=== PATIENT | male | born 1990 | race Two or more races ===

== ENCOUNTER 2025-01-01 00:30 | Emergency (ER) | payer MEDICAID, SELFPAY ==
--- NOTE | 2025-01-01 00:33 | EKG_ITS ---
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
[2025-01-01 00:47] VITALS: BP 141/98; PULSE 100; RESP 18; TEMP 37.2; O2SAT 95; BMI 34.5
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
--- NOTE | 2025-01-01 01:09 | PD.EDDIZZY ---
ED Dizzyness RME/HPI General Chief Complaint: Dizziness Stated Complaint: Dizzy Time Seen by Provider: 01/01/25 01:03 Arrival date/time: 01/01/25 00:30 34M with history of DM presents to ED with 2 days of dizziness and heart palps. Patient denies URI symptoms, CP, and SOB. Patient has been sober from alcohol for 5 months. Limitations: no limitations Related Data Previous Rx's ?Medication ?Instructions ?Recorded cyclobenzaprine 10 mg tablet 10 mg PO TID PRN muscle spasm #30 10/05/20 tabs ibuprofen 800 mg tablet 800 mg PO TID PRN pain #30 tabs 10/05/20 meclizine 25 mg tablet 25 mg PO BID PRN dizziness #30 tabs 01/01/25 Allergies Allergy/AdvReac Type Severity Reaction Status Date / Time No Known Allergies Allergy Verified 10/05/20 19:49 Review of Systems Review of Systems Systems Reviewed: All systems reviewed, normal except as documented Constitutional Constitutional: Reports system reviewed and no additional complaints, except as documented, Denies fever(s) and Denies headache(s) ENT Ears, Nose, Mouth, and Throat: Reports as per HPI, Denies disequilibrium, Denies headache(s) and Reports vertigo Cardiovascular Cardiovascular: Reports system reviewed and no additional complaints, except as documented, Reports as per HPI, Denies chest pain, Denies dyspnea and Reports palpitations Respiratory Respiratory: Reports system reviewed and no additional complaints, except as documented, Denies cough and Denies dyspnea Gastrointestinal Gastrointestinal: Reports system reviewed and no additional complaints, except as documented, Denies abdominal pain, Denies nausea and Denies vomiting Neurologic Neurologic: Reports system reviewed and no additional complaints, except as documented, Denies confusion, Denies disequilibrium, Denies headache(s) and Reports vertigo Psychiatric Psychiatric: Denies confusion Endocrine Endocrine: Reports palpitations Past Medical History Past Medical History NEUROLOGIC: Negative Neurological Disorders, Cerebrovascular Accident or Alzheimer's Disease CARDIAC: Negative Cardiac Disorders, Myocardial Infarction or Congestive Heart Failure RESPIRATORY: Negative Chronic Obstructive Pulmonary Disease (COPD) GASTROINTESTINAL: Negative Gastrointestinal Disorders, Liver Cancer or Hepatitis GENITOURINARY: Negative Genitourinary Disorders or Renal Disease MUSCULOSKELETAL: Negative Musculoskeletal Disorders or Muscular Dystrophy ENT: Negative Blind or Deafness ENDOCRINE: Negative Endocrine Disorders, Diabetes Mellitus Type 1 or Diabetes Mellitus Type 2 OTHER HISTORY: Negative Down Syndrome or Developmental Delay Surgical History SURGICAL: Positive Abdominal Surgery (Appy ) Social History SMOKING STATUS: Never smoker ED Exam General Limitations: Present no limitations General appearance: Present alert and in no apparent distress Head Head exam: Present atraumatic Eye Eye exam: Present normal appearance, PERRL and EOMI ENT ENT exam: Present normal exam, normal oropharynx and mucous membranes moist Neck Neck exam: Present normal inspection, full ROM and trachea midline Chest Chest inspection: Present normal inspection and symmetric chest wall rise Respiratory Respiratory exam: Present normal lung sounds bilaterally Cardiovascular Cardiovascular exam: Present regular rate, normal rhythm and normal heart sounds Abdominal Exam Abdominal exam: Present soft and normal bowel sounds Extremities Exam Extremities exam: Present normal inspection and full ROM Back Exam Back exam: Present normal inspection and full ROM Neurological Exam Neurological exam: Present alert, oriented X3 and CN II-XII intact Psychiatric Psychiatric exam: Present normal affect and normal mood Skin Skin exam: Present warm, dry, intact and normal color Course Quality Measures none Orders Category Date Time Status Blood glucose [Bedside Blood Glucose] NOW Care 01/01/25 01:01 Active EKG (ED ONLY) *Do not use* NOW Care 01/01/25 00:[address] head/brain wo con Stat Exams 01/01/25 01:03 Taken EKG (ED Only) Stat Exams 01/01/25 00:33 Draft Alcohol, Blood Medical Stat Lab 01/01/25 01:38 Completed CBC Stat Lab 01/01/25 01:38 Completed Comprehensive Metabolic Panel Stat Lab 01/01/25 01:38 Completed Drug Screen,Urine Stat Lab 01/01/25 01:21 Completed Troponin I Stat Lab 01/01/25 01:38 Completed Urinalysis Stat Lab 01/01/25 01:21 Completed Meclizine HCl [Antivert] Med 01/01/25 01:04 Discontinued 25 mg PO X1 ONE Vital Signs Vital signs: Vital Signs Temperature 98.9 F 01/01/25 00:47 Pulse Rate 100 01/01/25 00:47 Respiratory Rate 18 01/01/25 00:47 Blood Pressure 141/98 H 01/01/25 00:47 Pulse Oximetry (%) 95 01/01/25 00:47 Oxygen Delivery Method Room Air 01/01/25 00:47 O2 at 95% on RA and WNLs Dizziness MDM Narrative MDM Narrative:: 34M with history of DM presents to ED with 2 days of dizziness and heart palps. Patient denies URI symptoms, CP, and SOB. Patient has been sober from alcohol for 5 months. Physical exam reveals normal pupil response and EOM. ENT and lungs clear. RRR. CN II-XII grossly intact. Strength equal bilaterally. Gait normal. Patient is afebrile, calm, and alert. EKG is sinus tach of 101. CT normal. No leukocytosis or anemia. CMP and UA unremarkable except for hyperglycemia. Tox screen normal. Trop normal. Meds improved symptoms. Patient data External records reviewed:: [facility] previous records Clinical information provided by:: patient Social determinants that could affect healthcare access:: none Patient has the following chronic illnesses:: DM How is presenting disease/condition affected by chronic disease/condition?: exacerbated by Evaluation data The following diagnostics were reviewed and interpreted by me:: lab results, radiology exam(s) and EKG tracing(s) Lab and/or radiology exams considered but not ordered:: ordered Interpretation Summary: above Medications / Prescriptions Medications or Prescriptions considered but not ordered:: ordered Medication administrations:: Medication Administration History Discontinued Medications Meclizine HCl (Meclizine Hcl 25 Mg Tablet) 25 mg PO X1 ONE Stop: 01/01/25 01:05 Last Admin: 01/01/25 01:19 Dose: 25 mg Documented By: SF above Consultations Consultation(s) initiated? (list below): No Diagnosis Dizziness Differential Diagnosis: adverse reaction to drug, benign paroxysmal positional vertigo, orthostatic hypotension, vertebral basilar insufficiency, cerebrovascular accident, acute vestibular neuronitis, transient cerebral ischemia and other (ACS, PE, dizziness) Most likely diagnosis given after review of the tests above:: dizziness Admission Indicated Admission indicated?: not indicated Admission Request Was there a request for admission?: No Disposition Plan Disposition Plan: Discharge Discharge Attestation Discharge Attestation: The patient and all family members were given an opportunity to ask questions and understood the discharge instructions. Discharge instructions specifically effects, indications for sooner follow up or return to the emergency department, and the expected course of current diagnosis. Patient condition: Stable Discharge Plan Plan Patient Disposition: HOME (Self Care) Disposition Comment: Stable Prescriptions/Referrals Prescriptions/Med Rec: New meclizine 25 mg tablet 25 mg PO BID PRN (Reason: dizziness) Qty: 30 0RF No Action cyclobenzaprine 10 mg tablet 10 mg PO TID PRN (Reason: muscle spasm) Qty: 30 0RF ibuprofen 800 mg tablet 800 mg PO TID PRN (Reason: pain) Qty: 30 0RF Referrals: Gurinder Geiger MD [Primary Care Provider] - In 1 week Problem List Clinical Impression: Dizziness Patient/Caregiver Discharge Instructions Education Materials: ED Dizziness, Uncertain Cause Additional Instructions: Please follow-up with PCP within 24-48 hours and return immediately if symptoms worsen. Print Language: [place] Stand Alone Forms: Patient Portal Info Letter PA/MANAGER ASSURANCE Supervising Physician PA/MANAGER ASSURANCE Supervising Physician: Dr. Jara
[2025-01-01] MEDS: MECLIZINE HCL 25 MG TABLET PO (01:19)
[2025-01-01 01:37] LABS: Collection Type, Urine Clean Catch; RBC,Urine 0 /hpf (0-3); Squamous Epithelial Cell,Urine 0 /hpf (0-5); WBC,Urine 0 /hpf (0-5)
--- NOTE | 2025-01-01 01:45 | PRELIM_ITS ---
CT scan of the head without intravenous contrast (axial sections with sagittal, coronal and 3D reformats). January 01, 2025 at 0113 hours Clinical History: Dizziness. Compared with prior study dated October 02, 2010. Findings: No evidence of intracranial hemorrhage, mass effect or midline shift. The ventricles and CSF spaces are unremarkable. The calvarium is unremarkable. The mastoid air cells and the visualized paranasal sinuses are clear. Impression: No evidence of intracranial hemorrhage, mass effect or midline shift. Report Electronically Signed By: Ryley Fontaine 01/01/2025 1:44:34 AM [EST]
[2025-01-01 01:46] LABS: Basophils # (Auto) 0.1 Thou/mm3 (0.0-0.2); Basophils % (Auto) 1 % (0-2.5); Eosinophils # (Auto) 0.3 Thou/mm3 (0.0-0.5); Eosinophils % (Auto) 3 % (0-10); Hematocrit 45.5 % (41.0-53.0); Immature Granulocytes % (Auto) 0 % (0-0); Immature Granulocytes Auto 0.03 Thou/mm3 (0.00-0.00); Lymphocytes # (Auto) 4.4 Thou/mm3 (1.0-4.8); Lymphocytes % (Auto) 43 % (10-50); Mean Corpuscular HGB Conc 35.2 g/dl (31.0-37.0); Mean Corpuscular Hemoglobin 27.9 pg (25.0-35.0); Mean Corpuscular Volume 79 fL (80-100); Monocytes # (Auto) 0.9 Thou/mm3 (0.0-0.8); Monocytes % (Auto) 9 % (0-12); Neutrophils # (Auto) 4.7 Thou/mm3 (1.8-7.7); Neutrophils % (Auto) 45 % (37-80); Nucleated Red Blood Cell % 0 /100 WBC (0); Platelet Count 224 Thou/mm3 (140-440); RDW Standard Deviation 35.1 fL (35.1-43.9); Red Blood Count 5.73 Miln/mm3 (4.50-5.90); White Blood Count 10.4 Thou/mm3 (3.8-10.6)
[2025-01-01 01:54] LABS: Amphetamine/Methamp Scrn,U Negative (Negative); Barbiturate Screen,Urine Negative (Negative); Benzodiazepines Screen,Urine Negative (Negative); Benzoylecgonine Screen, Ur Negative (Negative); Fentanyl Screen,Urine Negative (Negative); Opiate Screen,Urine Negative (Negative); THC Screen,Urine Negative (Negative)
[2025-01-01 02:13] LABS: Alanine Aminotransferase 53 U/L (10-49); Albumin, Serum 4.6 gm/dL (3.5-5.0); Albumin/Globulin Ratio 1.4 (1.2-2.2); Alcohol, Blood Medical < 3.0 mg/dL (0-10.0); Alkaline Phosphatase 85 U/L (46-116); Anion Gap 10 (7-16); Aspartate Amino Transferase 27 U/L (0-34); BUN/Creatinine Ratio 11 Ratio (12-20); Bilirubin,Total 0.7 mg/dL (0.3-1.2); Blood Urea Nitrogen 10 mg/dL (9-23); Calcium 9.8 mg/dL (8.3-10.6); Calcium (Corrected) 9.8 mg/dL (8.5-10.1); Carbon Dioxide 26.7 mMol/L (20.0-31.0); Chloride 104 mMol/L (98-107); Creatinine (Component) 0.9 mg/dL (0.6-1.3); Estimated Creatinine Clearance 153.2 mL/min (>60); Globulin 3.3 gm/dL (2.3-3.5); Glucose 228 mg/dL (74-106); Osmolality,Calculated 287 (275-295); Potassium 4.2 mMol/L (3.4-5.1); Sodium 141 mMol/L (136-145); Total Protein 7.9 gm/dL (5.7-8.2); Troponin I < 0.002 ng/mL (0.0-0.045); eGFR > 60 See Note
[2025-01-01 02:14] VITALS: BP 131/88; PULSE 93; RESP 18; TEMP 36.7; O2SAT 98
[2025-01-01 02:36] LABS: Bacteria,Urine Rare; Bilirubin,Urine Negative (Negative); Blood,Urine Negative (Negative); Clarity,Urine Clear (Clear/Hazy); Color,Urine Lt-Yellow (Lt Yel-Yel); Glucose, Urine 4+ (Negative); Ketones,Urine Trace (Negative); Leukocyte Esterase,Urine Negative (Negative); Nitrite,Urine Negative (Negative); Protein,Urine Negative (Neg - Trace); Urobilinogen,Urine Negative mg/dL (0.0-1.0)
== END 2025-01-01 03:25 | disposition home or self-care (01) ==
PROVIDERS: Physician Assistant; Emergency Provider Emergency Medicine; PCP Family Medicine
DX: R42 Dizziness and giddiness (principal); R00.0 Tachycardia, unspecified
CPT/HCPCS: 36415; 70450; 80053; 80307; 80320; 81001; 84484; 85025; 93005; 99284; A9270; G0480

== ENCOUNTER 2025-05-01 07:20 | Day surgery (SDC) | payer MEDICAID, SELFPAY ==
[2025-04-30 07:30] VITALS: BMI 35.7
--- NOTE | 2025-04-30 07:45 | EKG_ITS ---
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
[2025-04-30 08:23] LABS: Basophils # (Auto) 0.1 Thou/mm3 (0.0-0.2); Basophils % (Auto) 1 % (0-2.5); Eosinophils # (Auto) 0.4 Thou/mm3 (0.0-0.5); Eosinophils % (Auto) 5 % (0-10); Hematocrit 44.4 % (41.0-53.0); Hemoglobin 15.3 g/dL (13.5-16.0); Immature Granulocytes % (Auto) 1 % (0-0); Immature Granulocytes Auto 0.06 Thou/mm3 (0.00-0.00); Lymphocytes % (Auto) 43 % (10-50); Mean Corpuscular HGB Conc 34.5 g/dl (31.0-37.0); Mean Corpuscular Hemoglobin 28.7 pg (25.0-35.0); Mean Corpuscular Volume 83 fL (80-100); Monocytes # (Auto) 0.8 Thou/mm3 (0.0-0.8); Monocytes % (Auto) 9 % (0-12); Neutrophils % (Auto) 43 % (37-80); Nucleated Red Blood Cell % 0 /100 WBC (0); Platelet Count 257 Thou/mm3 (140-440); RDW Standard Deviation 39.8 fL (35.1-43.9); Red Blood Count 5.34 Miln/mm3 (4.50-5.90); White Blood Count 9.4 Thou/mm3 (3.8-10.6)
[2025-04-30 08:38] LABS: Alanine Aminotransferase 178 U/L (10-49); Albumin, Serum 4.5 gm/dL (3.5-5.0); Albumin/Globulin Ratio 1.7 (1.2-2.2); Alkaline Phosphatase 88 U/L (46-116); Anion Gap 6 (7-16); Aspartate Amino Transferase 77 U/L (0-34); BUN/Creatinine Ratio 10 Ratio (12-20); Blood Urea Nitrogen 9 mg/dL (9-23); Calcium 9.5 mg/dL (8.3-10.6); Calcium (Corrected) 9.5 mg/dL (8.5-10.1); Carbon Dioxide 29.9 mMol/L (20.0-31.0); Chloride 101 mMol/L (98-107); Creatinine (Component) 0.9 mg/dL (0.6-1.3); Estimated Creatinine Clearance 143.9 mL/min (>60); Globulin 2.6 gm/dL (2.3-3.5); Glucose 270 mg/dL (74-106); Osmolality,Calculated 282 (275-295); Sodium 137 mMol/L (136-145); Total Protein 7.1 gm/dL (5.7-8.2); eGFR > 60 See Note
[2025-05-01] VITALS (7 sets, daily range): BP systolic 116–157; BP diastolic 81–110; PULSE 71–107; RESP 13–20; TEMP 36.7–37.2; O2SAT 92–98; BMI 35.2
--- NOTE | 2025-05-01 07:37 | ESHP_ITS ---
RE: SINGH BELTRAN : 1990 DATE OF ADMISSION: 04/30/2025 HISTORY OF PRESENT ILLNESS: The patient is a 34-year-old gentleman desiring bilateral vasectomy for family planning. He has four children. PAST SURGICAL HISTORY: Previous surgery of appendectomy. PAST MEDICAL HISTORY: He has a history of diabetes mellitus. No history of hypertension. He takes metformin. ALLERGIES: None known. PHYSICAL EXAMINATION: HEENT: Normal. NECK: Supple. LUNGS: Clear CARDIOVASCULAR: Heart sounds are normal. ABDOMEN: Soft without any organomegaly. No guarding. No rigidity. EXTREMITIES: Normal GENITOURINARY: Phallus is normal. Testes are down in the scrotum. IMPRESSION: The patient desiring bilateral vasectomy for family planning. PLAN: Bilateral vasectomy. Plan, procedure, risks and complications have been discussed with the patient. The patient has understood them and agreed to proceed. DT: 14:21:06 TT: 16:29:00 Ref: [id number] - TID: [id number]
--- NOTE | 2025-05-01 07:42 | SUR.PREOP ---
Patient expressed gratitude for prayer before their procedure.
[2025-05-01] MEDS: RINGERS LACTATED 1000 ML 1,000 ML 20 ML IV (08:25)
--- NOTE | 2025-05-01 10:12 | SUR.PHASEI ---
1012: Pt. AAOx4, vital stable, breathing unlabored, no complaint of pain or nausea, dressing to groin CDI, no active bleed noted, report received from MD Dubois and Lola BOLES.
--- NOTE | 2025-05-01 11:05 | SUR.PHASEII ---
1105: Pt. AAOx4, vitals stable, breathing unlabored, no complaint of pain or nausea, dressing to groin CDI, no active bleed noted, pt. tolerated sips of water well, pt. ambulated to wheelchair with steady gait and no assist, no complications. Gave discharge instructions to the pt. and his ride, both verbalized understanding and had no further quesitons. Pt. left with all personal belongings.
--- NOTE | 2025-05-01 14:23 | ESOP_ITS ---
RE: SINGH BELTRAN : 1990 DATE OF OPERATION: 05/01/2025 PREOPERATIVE DIAGNOSIS: The patient desiring bilateral vasectomy for family planning. POSTOPERATIVE DIAGNOSIS: The patient desiring bilateral vasectomy for family planning. PROCEDURE PERFORMED: Bilateral vasectomy. ANESTHESIA: General. INDICATION: The patient is a 34-year-old male desiring bilateral vasectomy for family planning. Bilateral vasectomy is scheduled. Planned procedure, risks and complications have been discussed with the patient. The patient has understood them and agreed to proceed. DESCRIPTION OF PROCEDURE: After the patient was brought to the operating table under adequate general anesthesia and supine position, parts were prepped and draped in the usual fashion. Right vas deferens was made subcutaneous. A small transverse incision was then made over the vas deferens, 0.5 cm long. Dissection was then carried out. The right vas deferens was isolated from surrounding structures. Two clamps were placed on the vas deferens. The segment between the clamps was excised and sent for histological examination. The ends of the vas deferens were fulgurated and ligated using 3-0 chromic gut suture. Complete hemostasis was obtained. Skin wound was closed with interrupted sutures of 3-0 chromic gut. In a similar fashion, the left-sided vasectomy was also done. Sterile dressing was then applied. The patient was then transferred to the recovery room in a satisfactory condition, having tolerated the entire procedure well. Sponge count and needle count at the end of the procedure was found to be correct. Estimated blood loss was approximately 1 mL. DT: 10:26:20 TT: 14:21:00 Ref: [id number] - TID: [id number]
== END 2025-05-01 11:05 | disposition home or self-care (01) ==
PROVIDERS: Anesthesiology; PCP Family Medicine; Referring Provider Surgery; Visit Provider Surgery
PROC: (CPT 55250; principal; 2025-05-01 09:30)
DX: Z30.2 Encounter for sterilization (principal)
CPT/HCPCS: 55250; 36415; 80053; 80069; 85025; 93005; A4217; A4649; J0690; J1100; J1885; J2405; J2704; J2765; J3010; J3490; J7120; L8330